=== PATIENT | male | born 1990 | race Caucasian/White ===

== ENCOUNTER 2017-10-04 16:56 | Emergency (ER) | payer OTHER ==
[2017-10-04 17:01] VITALS: RESP 18
[2017-10-04] MEDS ORDERED: KETOROLAC 30 MG/ML 1 ML VIAL IVP ONE (17:18)
--- NOTE | 2017-10-04 17:40 | ED ---
Abdominal Pain HPI - General Chief Complaint: Abdominal Pain Stated Complaint: Right Flank Pain Time Seen by Provider: 10/04/17 17:18 Source: patient Mode of arrival: ambulatory Limitations: no limitations - History of Present Illness Initial Comments: Rufino is a 26yo male with PMH of recurrent kidney stones, never requiring intervention, who since to the emergency department today for evaluation of sided flank pain. Patient reports the pain began on Thursday, he was seen in an outside hospital where he was evaluated with routine blood work and ultrasound and advised that there were no acute findings he was discharged home. Patient reports that since that time he has had persistent right-sided flank pain as well as urinary urgency. Patient report pain is 10/10 in severity, stabbing, intermittent, pain is associated with waves of nausea. Patient cannot identify any exacerbating or relieving factors to his pain. Patient denies any chest pain, on his breath, palpitations, vomiting, anorexia, constipation or diarrhea. - Related Data Previous Rx's Medication Instructions Recorded HYDROcodone/APAP 5-325MG [[place] 1 tab PO Q6HR PRN #10 tab 10/04/17 5-325] Tamsulosin HCl [Flomax] 0.4 mg PO DAILY 15 Days #15 cap 10/04/17 Allergies Allergy/AdvReac Type Severity Reaction Status Date / Time No Known Allergies Allergy Verified 10/04/17 17:07 Review of Systems ROS Statement: Those systems with pertinent positive or pertinent negative responses have been documented in the HPI. ROS Other: All systems not noted in ROS Statement are negative. Constitutional: Denies: fever Respiratory: Denies: cough, dyspnea Cardiovascular: Denies: chest pain, palpitations Endocrine: Denies: fatigue Gastrointestinal: Reports: nausea. Denies: vomiting Genitourinary: Reports: urgency, other. Denies: dysuria, frequency, hematuria Musculoskeletal: Reports: back pain Skin: Denies: rash, lesions Neurological: Denies: headache, weakness Psychiatric: Denies: anxiety, depression Hematological/Lymphatic: Denies: easy bleeding, easy bruising Past Medical History Additional Past Medical History / Comment(s): kidney stone History of Any Multi-Drug Resistant Organisms: None Reported Past Surgical History: No Surgical Hx Reported Past Psychological History: No Psychological Hx Reported Smoking Status: Never smoker Past Alcohol Use History: None Reported Past Drug Use History: None Reported General Exam Limitations: no limitations General appearance: alert, in no apparent distress Head exam: Present: atraumatic, normocephalic Eye exam: Present: normal appearance, PERRL ENT exam: Present: normal exam Neck exam: Present: normal inspection. Absent: tenderness Respiratory exam: Present: normal lung sounds bilaterally. Absent: respiratory distress Cardiovascular Exam: Present: regular rate, normal rhythm GI/Abdominal exam: Present: soft, distended. Absent: tenderness Rectal exam: Present: deferred exam: Present: other (Tenderness to percussion of right flank) Extremities exam: Present: normal inspection Back exam: Present: normal inspection Neurological exam: Present: alert, oriented X3 Psychiatric exam: Present: normal affect, normal mood Skin exam: Present: warm, dry, intact Course Vital Signs 10/04/17 16:59 Temperature 97.8 F Pulse Rate 82 Respiratory 18 Rate Blood Pressure 137/86 O2 Sat by Pulse 98 Oximetry Medical Decision Making - Medical Decision Making Patient was seen and evaluated, history was obtained from the patient Signs were reviewed, there is no Sirs criteria Labs were ordered Discussed with the patient option for repeat ultrasound versus computed tomography scan. Patient does not recall having ever had a computed tomography scan for renal stones in the past. Patient prefers a computed tomography scan at this point as he had a negative ultrasound on Thursday and is experiencing persistent symptoms. ED scan was ordered Toradol was ordered for analgesia - Lab Data Result diagrams: 10/04/17 17:00 10/04/17 17:00 Lab Results 10/04/17 10/04/17 10/04/17 Range/Units 17:00 17:00 17:34 WBC 6.6 (3.8-10.6) k/uL RBC 5.56 (4.30-5.90) m/uL Hgb 16.9 (13.0-17.5) gm/dL Hct 49.7 (39.0-53.0) % MCV 89.4 (80.0-100.0) fL MCH 30.4 (25.0-35.0) pg MCHC 34.0 (31.0-37.0) g/dL RDW 13.9 (11.5-15.5) % Plt Count 181 (150-450) k/uL Neutrophils % 74 % Lymphocytes % 14 % Monocytes % 8 % Eosinophils % 2 % Basophils % 1 % Neutrophils # 4.9 (1.3-7.7) k/uL Lymphocytes # 0.9 L (1.0-4.8) k/uL Monocytes # 0.5 (0-1.0) k/uL Eosinophils # 0.1 (0-0.7) k/uL Basophils # 0.0 (0-0.2) k/uL Sodium 141 (137-145) mmol/L Potassium 3.8 (3.5-5.1) mmol/L Chloride 104 (98-107) mmol/L Carbon Dioxide 26 (22-30) mmol/L Anion Gap 11 mmol/L BUN 15 (9-20) mg/dL Creatinine 1.30 H (0.66-1.25) mg/dL Est GFR (MDRD) Af Amer >60 (>60 ml/min/1.73 sqM) Est GFR (MDRD) Non-Af >60 (>60 ml/min/1.73 sqM) Glucose 96 (74-99) mg/dL Calcium 9.7 (8.4-10.2) mg/dL Urine Color Yellow Urine Appearance Clear (Clear) Urine pH 5.5 (5.0-8.0) Ur Specific [place] 1.019 (1.001-1.035) Urine Protein Trace H (Negative) Urine Glucose (UA) Negative (Negative) Urine Ketones Negative (Negative) Urine Blood Moderate H (Negative) Urine Nitrite Negative (Negative) Urine Bilirubin Negative (Negative) Urine Urobilinogen <2.0 (<2.0) mg/dL Ur Leukocyte Esterase Negative (Negative) Urine RBC 17 H (0-5) /hpf Urine WBC 3 (0-5) /hpf Urine Mucus Few H (None) /hpf Disposition Clinical Impression: Right nephrolithiasis Disposition: HOME SELF-CARE Condition: Good Instructions: Kidney Stones (ED) Prescriptions: HYDROcodone/APAP 5-325MG [[place] 5-325] 1 tab PO Q6HR PRN #10 tab PRN Reason: Pain Tamsulosin HCl [Flomax] 0.4 mg PO DAILY 15 Days #15 cap Referrals: None,Stated [Primary Care Provider] - 1-2 days Min Bashir MD [STAFF PHYSICIAN] - 1-2 days
[2017-10-04 17:41] LABS: Basophils % (A) 1 %; CH 31.2; Eosinophils # (A) 0.1 k/uL (0-0.7); Eosinophils % (A) 2 %; HCT 49.7 % (39.0-53.0); HGB 16.9 gm/dL (13.0-17.5); Luc # (Auto) 0.05; Luc % (Auto) 1; Lymphocytes # (A) 0.9 k/uL (1.0-4.8); Lymphocytes % (A) 14 %; MCH 30.4 pg (25.0-35.0); MCV 89.4 fL (80.0-100.0); Mean Platelet Volume 9.4; Monocytes # (A) 0.5 k/uL (0-1.0); Monocytes % (A) 8 %; Neutrophils # (A) 4.9 k/uL (1.3-7.7); Neutrophils % (A) 74 %; RBC 5.56 m/uL (4.30-5.90); RDW 13.9 % (11.5-15.5); WBC 6.6 k/uL (3.8-10.6); WBC (Perox) 6.49
[2017-10-04 17:49] LABS: Appearance,Urine Clear (Clear); Bilirubin,Urine Negative (Negative); Glucose,Urine (UA) Negative (Negative); Ketones,Urine Negative (Negative); Leukocyte Esterase,Urine Negative (Negative); Mucus,Urine Few /hpf; Nitrite,Urine Negative (Negative); PH, Urine 5.5 (5.0-8.0); Particle Count 3196; Protein,Urine Trace (Negative); RBC,Urine 17 /hpf (0-5); Specific Gravity,Urine 1.019 (1.001-1.035); UA Billing (MACRO vs. MICRO) MICRO; Urobilinogen,Urine <2.0 mg/dL (<2.0); WBC,Urine 3 /hpf (0-5)
[2017-10-04 17:50] LABS: Anion Gap 11 mmol/L; Blood Urea Nitrogen 15 mg/dL (9-20); Calcium 9.7 mg/dL (8.4-10.2); Carbon Dioxide 26 mmol/L (22-30); Chloride 104 mmol/L (98-107); Glucose 96 mg/dL (74-99); Non-African American GFR(MDRD) >60 (>60 ml/min/1.73 sqM); Potassium 3.8 mmol/L (3.5-5.1); Sodium 141 mmol/L (137-145)
--- NOTE | 2017-10-04 17:58 | CT ---
EXAMINATION TYPE: CT renal stones wo con DATE OF EXAM: 10/04/2017 HISTORY: Patient complains of right flank pain. Patient has a history of prior renal stones. CT DLP: 878 mGycm. Automated Exposure Control for Dose Reduction was Utilized. TECHNIQUE: CT scan of the abdomen and pelvis is performed without oral or IV contrast. COMPARISON: NONE FINDINGS: Lung bases are clear of infiltrate. There is no pleural effusion. Heart size is normal. Liver spleen pancreas gallbladder appear normal. Bile ducts are not dilated. There is no adrenal mass. There are multiple bilateral renal calculi that measure up to 6 mm. There i s a 5 mm calculus in the proximal right ureter near the ureteral pelvic junction. There is mild right -sided hydronephrosis. There is no retroperitoneal adenopathy. Appendix appears normal. I see no intestinal wall thickening. There are no dilated loops. There is no evidence of a pelvic mass. Bladder is almost empty. I see no bony destructive process. CONCLUSION: Numerous bilateral renal calculi. Obstructing calculus in the proximal right ureter at the ureteropel huma junction.
[2017-10-04 19:01] VITALS: BP 121/58; PULSE 67; TEMP 97.4
== END 2017-10-04 18:59 | disposition home or self-care (01) ==
LOC: EC 16:56
DX: N20.0 Calculus of kidney (principal)
CPT/HCPCS: 36415; 80048; 85025; 81001; 74150; 99284; 96374; J1885

== ENCOUNTER 2017-10-17 16:57 | Emergency (ER) | payer OTHER ==
[2017-10-17 17:03] VITALS: TEMP 98
[2017-10-17] MEDS ORDERED: SODIUM CHLORIDE 0.9% 1,000 ML IV STA ×3 (17:12→20:49)
[2017-10-17] MEDS ORDERED: ONDANSETRON 4 MG/2 ML VIAL IVP STA (17:12)
[2017-10-17] MEDS ORDERED: HYDROmorphone 1 MG/ML 1 ML SYRINGE IVP STA (17:12)
[2017-10-17] MEDS ORDERED: KETOROLAC 30 MG/ML 1 ML VIAL IVP STA (17:12)
--- NOTE | 2017-10-17 17:15 | ED ---
General Adult HPI - General Source: patient, RN notes reviewed Mode of arrival: ambulatory Limitations: no limitations <Frank Schmidt - Last Filed: 10/17/17 17:13> <Kelvin Hays - Last Filed: 10/17/17 20:42> - General Chief complaint: Abdominal Pain Stated complaint: Right Flank Pain Time Seen by Provider: 10/17/17 17:08 - History of Present Illness Initial comments: 26-year-old male significant past medical history for kidney stones, who presents emergency room today with chief complaint of increased right-sided flank pain. He doesn't that over the last 2 weeks she's been expressing some pain off and on. He states he has been using pain medication at home. States the pain increased once again today. Patient doesn't some symptoms of nausea vomiting. States symptoms are consistent with kidney stones that is had in the past. He does admit that he feels some pain radiate from back to the front. States he was planning to see a urologist but has not so far. He does admit that he was seen recently had a recent CAT scan approximately 2 weeks ago here in the emergency room. He states he was told that there was a 5 mm stone on the right side. Patient denies any recent fever, chills, shortness of breath, chest pain, numbness or tingling, constipation or diarrhea, headaches or visual changes, or any other complaints. (Frank Schmidt) - Related Data Previous Rx's Medication Instructions Recorded HYDROcodone/APAP 5-325MG [[place] 1 tab PO Q6HR PRN #10 tab 10/04/17 5-325] Tamsulosin HCl [Flomax] 0.4 mg PO DAILY 15 Days #15 cap 10/04/17 Allergies Allergy/AdvReac Type Severity Reaction Status Date / Time No Known Allergies Allergy Verified 10/17/17 18:07 Review of Systems ROS Other: All systems not noted in ROS Statement are negative. <Frank Schmidt - Last Filed: 10/17/17 17:13> ROS Other: All systems not noted in ROS Statement are negative. <Kelvin Hays - Last Filed: 10/17/17 20:42> ROS Statement: Those systems with pertinent positive or pertinent negative responses have been documented in the HPI. Past Medical History Additional Past Medical History / Comment(s): kidney stone History of Any Multi-Drug Resistant Organisms: None Reported Past Surgical History: No Surgical Hx Reported Past Psychological History: No Psychological Hx Reported Smoking Status: Never smoker Past Alcohol Use History: None Reported Past Drug Use History: None Reported <BrayanFrank - Last Filed: 10/17/17 17:13> General Exam Limitations: no limitations <Frank Schmidt - Last Filed: 10/17/17 17:13> General appearance: alert, in no apparent distress Head exam: Present: atraumatic, normocephalic, normal inspection Eye exam: Present: normal appearance, PERRL, EOMI. Absent: scleral icterus, conjunctival injection, periorbital swelling ENT exam: Present: normal exam, mucous membranes moist Neck exam: Present: normal inspection. Absent: tenderness, meningismus, lymphadenopathy Respiratory exam: Present: normal lung sounds bilaterally. Absent: respiratory distress, wheezes, rales, rhonchi, stridor Cardiovascular Exam: Present: regular rate, normal rhythm, normal heart sounds. Absent: systolic murmur, diastolic murmur, rubs, gallop, clicks GI/Abdominal exam: Present: soft, normal bowel sounds. Absent: distended, tenderness, guarding, rebound, rigid Extremities exam: Present: normal inspection, full ROM, normal capillary refill. Absent: tenderness, pedal edema, joint swelling, calf tenderness Back exam: Present: normal inspection Neurological exam: Present: alert, oriented X3, CN II-XII intact Psychiatric exam: Present: normal affect, normal mood Skin exam: Present: warm, dry, intact, normal color. Absent: rash <Kelvin Hays - Last Filed: 10/17/17 20:42> - General Exam Comments Initial Comments: General: The patient is awake and alert, in mild distress Eye: Pupils are equal, round and reactive to light, extra-ocular movements are intact. No nystagmus. There is normal conjunctiva bilaterally. No signs of icterus. Ears, nose, mouth and throat: There are moist mucous membranes and no oral lesions. Neck: The neck is supple, there is no tenderness or JVD. Cardiovascular: There is a regular rate and rhythm. No murmur, rub or gallop is appreciated. Respiratory: Lungs are clear to auscultation, respirations are non-labored, breath sounds are equal. No wheezes, stridor, rales, or rhonchi. Gastrointestinal: Soft, non-distended. mild tenderness on the right lower. There is no rebound or guarding present. Right side CVA tenderness. Bowel sounds are unremarkable. Musculoskeletal: Normal ROM, no tenderness. Strength 5/5. Sensation intact. Pulses equal bilaterally 2+. Neurological: A&O x 3. CN II-XII intact, There are no obvious motor or sensory deficits. Coordination appears grossly intact. Speech is normal. Skin: Skin is warm and dry and no rashes or lesions are noted. Psychiatric: Cooperative, appropriate mood & affect, normal judgment. (Frank Schmidt) Vital Signs 10/17/17 10/17/17 17:01 19:07 Temperature 98 F Pulse Rate 91 88 Respiratory 20 18 Rate Blood Pressure 113/68 O2 Sat by Pulse 100 98 Oximetry Medical Decision Making <Frank Schmidt - Last Filed: 10/17/17 17:13> - Lab Data Result diagrams: 10/17/17 17:15 10/17/17 17:15 - Radiology Data Radiology results: report reviewed (X-ray KUB negative, x-ray kidneys or bladder ), image reviewed <Kelvin Hays - Last Filed: 10/17/17 20:42> - Medical Decision Making 26-year-old ER for evaluation. Patient was ER for evaluation of his old history of kidney stones. Pain well controlled at this point. Patient was discharged home to continue pain control (Kelvin Hays) - Lab Data Lab Results 10/17/17 10/17/17 10/17/17 Range/Units 17:15 17:15 19:00 WBC 7.6 (3.8-10.6) k/uL RBC 5.36 (4.30-5.90) m/uL Hgb 16.4 (13.0-17.5) gm/dL Hct 46.9 (39.0-53.0) % MCV 87.5 (80.0-100.0) fL MCH 30.6 (25.0-35.0) pg MCHC 35.0 (31.0-37.0) g/dL RDW 12.0 (11.5-15.5) % Plt Count 168 (150-450) k/uL Neutrophils % 79 % Lymphocytes % 12 % Monocytes % 6 % Eosinophils % 1 % Basophils % 0 % Neutrophils # 6.0 (1.3-7.7) k/uL Lymphocytes # 0.9 L (1.0-4.8) k/uL Monocytes # 0.4 (0-1.0) k/uL Eosinophils # 0.1 (0-0.7) k/uL Basophils # 0.0 (0-0.2) k/uL Sodium 138 (137-145) mmol/L Potassium 3.5 (3.5-5.1) mmol/L Chloride 104 (98-107) mmol/L Carbon Dioxide 22 (22-30) mmol/L Anion Gap 12 mmol/L BUN 15 (9-20) mg/dL Creatinine 1.58 H (0.66-1.25) mg/dL Est GFR (MDRD) Af Amer >60 (>60 ml/min/1.73 sqM) Est GFR (MDRD) Non-Af 54 (>60 ml/min/1.73 sqM) Glucose 103 H (74-99) mg/dL Calcium 9.6 (8.4-10.2) mg/dL Total Bilirubin 1.5 H (0.2-1.3) mg/dL AST 22 (17-59) U/L ALT 35 (21-72) U/L Alkaline Phosphatase 61 (38-126) U/L Total Protein 7.3 (6.3-8.2) g/dL Albumin 4.0 (3.5-5.0) g/dL Urine Color Yellow Urine Appearance Clear (Clear) Urine pH 5.5 (5.0-8.0) Ur Specific [place] 1.026 (1.001-1.035) Urine Protein 1+ H (Negative) Urine Glucose (UA) Negative (Negative) Urine Ketones 4+ H (Negative) Urine Blood Moderate H (Negative) Urine Nitrite Negative (Negative) Urine Bilirubin Negative (Negative) Urine Urobilinogen 2.0 (<2.0) mg/dL Ur Leukocyte Esterase Negative (Negative) Urine RBC 20 H (0-5) /hpf Urine WBC 2 (0-5) /hpf Ur Squamous Epith Cells <1 (0-4) /hpf Hyaline Casts 1 (0-2) /lpf Urine Mucus Few H (None) /hpf Disposition <Frank Schmidt - Last Filed: 10/17/17 17:13> <Kelvin Hays - Last Filed: 10/17/17 20:42> Clinical Impression: Right nephrolithiasis Disposition: HOME SELF-CARE Condition: Good Instructions: Renal Colic (ED), Kidney Stones (ED) Referrals: Feliberto Leary MD [STAFF PHYSICIAN] - 1-2 days
[2017-10-17 17:24] LABS: Basophils % (A) 0 %; CH 31.8; CHCM 36.5; Eosinophils # (A) 0.1 k/uL (0-0.7); Eosinophils % (A) 1 %; HCT 46.9 % (39.0-53.0); HDW 2.87; HGB 16.4 gm/dL (13.0-17.5); Luc # (Auto) 0.08; Luc % (Auto) 1; Lymphocytes # (A) 0.9 k/uL (1.0-4.8); Lymphocytes % (A) 12 %; MCH 30.6 pg (25.0-35.0); MCV 87.5 fL (80.0-100.0); Mean Platelet Volume 8.6; Monocytes # (A) 0.4 k/uL (0-1.0); Monocytes % (A) 6 %; Neutrophils % (A) 79 %; RBC 5.36 m/uL (4.30-5.90); WBC 7.6 k/uL (3.8-10.6); WBC (Perox) 7.39
[2017-10-17 17:44] LABS: ALT 35 U/L (21-72); AST 22 U/L (17-59); Alkaline Phosphatase 61 U/L (38-126); Anion Gap 12 mmol/L; Blood Urea Nitrogen 15 mg/dL (9-20); Calcium 9.6 mg/dL (8.4-10.2); Carbon Dioxide 22 mmol/L (22-30); Chloride 104 mmol/L (98-107); Glucose 103 mg/dL (74-99); Non-African American GFR(MDRD) 54 (>60 ml/min/1.73 sqM); Potassium 3.5 mmol/L (3.5-5.1); Sodium 138 mmol/L (137-145); Total Bilirubin 1.5 mg/dL (0.2-1.3); Total Protein 7.3 g/dL (6.3-8.2)
--- NOTE | 2017-10-17 18:09 | XR ---
EXAMINATION TYPE: XR KUB - 2 upright views DATE OF EXAM: 10/17/2017 5:45 PM CLINICAL HISTORY: Nausea vomiting abdominal pain and right flank pain TECHNIQUE: 2 upright views covering the abdomen and pelvis. COMPARISON: 06/19/2015 FINDINGS: There are tiny multifocal opacities over the renal shadows bilaterally, greater on the righ t. These are all less than 3 mm and are suspicious for urolithiasis, greater on the right. The renal shadows have normal size. Immediately right of the right L4 transverse process is a calcific density measuring 5 mm longitudinal by 3 mm transverse. This is superimposed over the expected position of th e right ureter. Phleboliths are noted in the left hemipelvis. There are no other calcifications. There is no pneumatosis or pneumoperitoneum. The bowel is unremarkable. No visceromegaly. Skeletal structures are unremarkable. Visualized lower thorax is unremarkable. IMPRESSION: 1. Bilateral urolithiasis, greater on the right. 2. Suspect right mid ureteral calcification.
[2017-10-17] MEDS ORDERED: HYDROmorphone 0.5 MG/0.5 ML SYRINGE IVP STA (18:51)
[2017-10-17 19:08] VITALS: RESP 18
[2017-10-17 19:27] LABS: Appearance,Urine Clear (Clear); Bilirubin,Urine Negative (Negative); Glucose,Urine (UA) Negative (Negative); Ketones,Urine 4+ (Negative); Leukocyte Esterase,Urine Negative (Negative); Mucus,Urine Few /hpf; Nitrite,Urine Negative (Negative); PH, Urine 5.5 (5.0-8.0); Particle Count 4132; Protein,Urine 1+ (Negative); RBC,Urine 20 /hpf (0-5); Specific Gravity,Urine 1.026 (1.001-1.035); Squamous Epithelial Cell,Urine <1 /hpf (0-4); UA Billing (MACRO vs. MICRO) MICRO; WBC,Urine 2 /hpf (0-5)
[2017-10-17] MEDS ORDERED: MORPHINE SULFATE 2 MG/ML SYRINGE IVP STA (19:41)
[2017-10-17] MEDS ORDERED: ACETAMINOPHEN IV (For NPO) 1,000 MG in EMPTY BAG 1 BAG IVPB STA (19:46)
--- NOTE | 2017-10-17 21:01 | US ---
EXAMINATION TYPE: US kidneys/renal and bladder DATE OF EXAM: 10/17/2017 COMPARISON: CT 2017 CLINICAL HISTORY: Pain. History of hydronephrosis and kidney stones EXAM MEASUREMENTS: Right Kidney: 11.2 x 5.9 x 6.0 cm Left Kidney: 11.1 x 4.8 x 4.4 cm Right Kidney: multiple echogenic foci throughout with largest measuring 1.2cm inferior pole , Left Kidney: multiple echogenic foci throughout with largest measuring 0.6cm superior pole, Bladder: not fully distended. Bilateral ureteral jets seen: wnl There is no evidence for hydronephrosis at this point in time. No masses are identified. The urinary bladder is anechoic. Bilateral ureteral jets are seen. IMPRESSION: 1. NEGATIVE FOR HYDRONEPHROSIS. 2. BILATERAL NONOBSTRUCTING RENAL CALCIFICATIONS.
[2017-10-17 21:03] VITALS: BP 109/57; PULSE 85
== END 2017-10-17 21:23 | disposition home or self-care (01) ==
LOC: EC 16:57
DX: N20.0 Calculus of kidney (principal); Z87.442 Personal history of urinary calculi; Z53.29 Procedure and treatment not carried out because of patient's decision for other reasons
CPT/HCPCS: 36415; 80053; 85025; 81001; 74000; 76770; 99284; 96374; 96375 ×2; 96376; 96361 ×3; J2405; J1885; J1170 ×2

== ENCOUNTER → 2018-01-05 | Outpatient (CLI) | payer BC, OTHER ==
--- NOTE | 2018-01-05 14:51 | XR ---
Abdomen HISTORY: Lithotripsy for right kidney stones, N 20.0 right kidney calculus of ureter Frontal view of the abdomen submitted on 2 images and correlated to prior exam dated 10/17/2017, CT Multiple punctate calcifications within the pelvis are again noted. Multiple bilateral renal calcific ations are also present measuring only approximately 2 to 3 mm. Ureteral calcification is not evident . Partial sacralization of L5 again noted. IMPRESSION: Bilateral nephrolithiasis. Ureteral calculus on the right is no longer evident.
== END | disposition home or self-care (01) ==
LOC: RADXRMAIN 11:14
PROVIDERS: ATTEND Urology
DX: N20.0 Calculus of kidney (principal)
CPT/HCPCS: 74018